=== PATIENT | female | born 1970 | race Caucasian/White ===

== ENCOUNTER 2020-08-20 12:44 | Emergency (ER) | payer OTHER ==
--- NOTE | 2020-08-20 14:07 | ER Document Report ---
ED Medical Screen (RME) - General Chief Complaint: Dizziness Stated Complaint: LIGHTHEADED,HANDS FEEL TINGLY Time Seen by Provider: 08/20/20 13:59 Notes: HPI: 50-year-old female presenting with multiple complaints. Patient states that she had a fall and hit her head several days ago. Now has dizziness when she bends forward or moves the head. Also reports some neck pain with bilateral hand numbness and tingling that is intermittent. She also reports a vague discomfort in the chest over the last 2 to 3 days without shortness of breath. Patient also has noticed an elevation of her blood pressure recently, states she had a history of high blood pressure while but is not on medication PHYSICAL EXAMINATION: Lung sounds are clear to auscultation regular rate and rhythm. Patient gait is normal. Her speech is not slurred. There is no facial droop. I have greeted and performed a rapid initial assessment of this patient. A comprehensive ED assessment and evaluation of the patient, analysis of test results and completion of medical decision making process will be conducted by an additional ED providers. Physical Exam - Vital signs Vitals: Temp Pulse Resp BP Pulse Ox 99.2 F 86 20 162/78 H 99 08/20/20 13:11 08/20/20 13:11 08/20/20 13:11 08/20/20 13:11 08/20/20 13:11 Course - Vital Signs Vital signs: Temp Pulse Resp BP Pulse Ox 99.2 F 86 20 162/78 H 99 08/20/20 13:11 08/20/20 13:11 08/20/20 13:11 08/20/20 13:11 08/20/20 13:11
[2020-08-20 15:01] LABS: ABSOLUTE BASOPHILS # (AUTO) 0.1 10^3/uL (0.0-0.2); ABSOLUTE EOSINOPHILS # (AUTO) 0.1 10^3/uL (0.0-0.6); ABSOLUTE LYMPHOCYTES (AUTO) 2.4 10^3/uL (0.5-4.7); ABSOLUTE MONOCYTES (AUTO) 0.7 10^3/uL (0.1-1.4); ABSOLUTE NEUT (AUTO) 5.6 10^3/uL (1.7-8.2); BASOPHILS % (AUTO) 0.7 % (0-2); EOSINOPHILS % (AUTO) 0.9 % (0-6); HEMOGLOBIN 13.4 g/dL (12.0-15.5); LYMPHOCYTES % (AUTO) 27.1 % (13-45); MEAN CORPUSCULAR HEMOGLOBIN 26.7 pg (27.0-33.4); MEAN CORPUSCULAR HGB CONC 33.5 g/dL (32.0-36.0); MEAN CORPUSCULAR VOLUME 80 fl (80-97); PLATELET COUNT 338 10^3/uL (150-450); RED BLOOD COUNT 5.02 10^6/uL (3.72-5.28); RED CELL DISTRIBUTION WIDTH 14.8 % (11.5-14.0); SEGMENTED NEUTROPHILS % (AUTO) 63.3 % (42-78); TOTAL CELLS COUNTED % (AUTO) 100 %; WHITE BLOOD COUNT 8.8 10^3/uL (4.0-10.5)
--- NOTE | 2020-08-20 15:04 | RADIOLOGY REPORT (SQ) ---
EXAM DESCRIPTION: CT HEAD WITHOUT IMAGES COMPLETED DATE/TIME: 08/20/2020 2:52 pm REASON FOR STUDY: dizziness COMPARISON: None. TECHNIQUE: Axial images acquired through the brain without intravenous contrast. Images reviewed wi th bone, brain and subdural windows. Additional sagittal and coronal reconstructions were generated. Images stored on PACS. All CT scanners at this facility use dose modulation, iterative reconstruction, and/or weight based d osing when appropriate to reduce radiation dose to as low as reasonably achievable (ALARA). [facility]: Dose Right [facility]: CareDose [facility]: Dose Right [facility]: Teradose 4D [facility]: [employer] RADIATION DOSE: CT Rad equipment meets quality standard of care and radiation dose reduction techniq ues were employed. CTDIvol: 53.2 mGy. DLP: 1124 mGy-cm. LIMITATIONS: None. FINDINGS: VENTRICLES: Normal size and contour. The cisterns are patent. CEREBRUM: No masses. No hemorrhage. No midline shift. No evidence for acute infarction. Normal gra y/white matter differentiation. No areas of low density in the white matter. CEREBELLUM: No masses. No hemorrhage. No alteration of density. No evidence for acute infarction. EXTRAAXIAL SPACES: No fluid collections. No masses. ORBITS AND GLOBE: No intra- or extraconal masses. Normal contour of globe without masses. CALVARIUM: No fracture. PARANASAL SINUSES: No fluid or mucosal thickening. SOFT TISSUES: No mass or hematoma. OTHER: No other significant finding. IMPRESSION: 1. No acute intracranial abnormality. EVIDENCE OF ACUTE STROKE: NO COMMENT: Quality ID # [id number]: Final reports with documentation of one or more dose reduction techniques (e.g., Automated exposure control, adjustment of the mA and/or kV according to patient size, use of iterative reconstruction technique) TECHNICAL DOCUMENTATION: JOB ID: [id number] 2010 [employer]- All Rights Reserved Reading location - IP/workstation name: [email or web address]
--- NOTE | 2020-08-20 15:04 | RADIOLOGY REPORT (SQ) ---
EXAM DESCRIPTION: CT CERVICAL SPINE WITHOUT IMAGES COMPLETED DATE/TIME: 08/20/2020 2:52 pm REASON FOR STUDY: numbness hands COMPARISON: None. TECHNIQUE: Axial images acquired through the cervical spine without intravenous contrast. Images re viewed with lung, soft tissue and bone windows. Reconstructed coronal and sagittal MPR images review ed. Images stored on PACS. All CT scanners at this facility use dose modulation, iterative reconstruction, and/or weight based d osing when appropriate to reduce radiation dose to as low as reasonably achievable (ALARA). [facility]: Dose Right [facility]: CareDose [facility]: Dose Right [facility]: Teradose 4D [facility]: [employer] RADIATION DOSE: CT Rad equipment meets quality standard of care and radiation dose reduction techniq ues were employed. CTDIvol: 20.6 mGy. DLP: 499 mGy-cm. LIMITATIONS: None. FINDINGS: ALIGNMENT: Anatomic. MINERALIZATION: Normal. VERTEBRAL BODIES: The cervical vertebral body heights are preserved. There is no fracture. DISCS: Preserved. FACETS, LATERAL MASSES, POSTERIOR ELEMENTS: Intact. HARDWARE: None in the spine. VISUALIZED RIBS: No fractures. LUNG APICES AND SOFT TISSUES: No pre or paravertebral hematoma. OTHER: No other findings. IMPRESSION: No acute fracture or malalignment of the cervical spine. TECHNICAL DOCUMENTATION: JOB ID: [id number] Quality ID # [id number]: Final reports with documentation of one or more dose reduction techniques (e.g., Au tomated exposure control, adjustment of the mA and/or kV according to patient size, use of iterative reconstruction technique) 2010 [employer]- All Rights Reserved Reading location - IP/workstation name: [email or web address]
[2020-08-20 15:17] LABS: ALBUMIN 4.3 g/dL (3.5-5.0); ALKALINE PHOSPHATASE 55 U/L (38-126); ANION GAP 7 (5-19); ASPARTATE AMINO TRANSFERASE 23 U/L (14-36); BILIRUBIN,DIRECT 0.2 mg/dL (0.0-0.4); BILIRUBIN,TOTAL 0.4 mg/dL (0.2-1.3); BLOOD UREA NITROGEN 14 mg/dL (7-20); CALCIUM 10.3 mg/dL (8.4-10.2); CARBON DIOXIDE 30 mmol/L (22-30); CHLORIDE 102 mmol/L (98-107); GLUCOSE 90 mg/dL (75-110); POTASSIUM 4.3 mmol/L (3.6-5.0); TOTAL PROTEIN 7.9 g/dL (6.3-8.2)
--- NOTE | 2020-08-20 15:33 | RADIOLOGY REPORT (SQ) ---
EXAM DESCRIPTION: CHEST 2 VIEWS IMAGES COMPLETED DATE/TIME: 08/20/2020 3:18 pm REASON FOR STUDY: dizziness COMPARISON: None. EXAM PARAMETERS: NUMBER OF VIEWS: Two views. TECHNIQUE: PA and lateral views of the chest were obtained. RADIATION DOSE: NA LIMITATIONS: None. FINDINGS: LUNGS AND PLEURA: No consolidation, pleural effusion or pneumothorax. MEDIASTINUM AND HILAR STRUCTURES: No mediastinal or hilar contour abnormality. HEART AND VASCULAR STRUCTURES: The cardiac silhouette and pulmonary vasculature are within normal baxter its. BONES: No acute findings. HARDWARE: None in the chest. OTHER: No other finding. IMPRESSION: No acute cardiopulmonary process. TECHNICAL DOCUMENTATION: JOB ID: [id number] 2010 [employer]- All Rights Reserved Reading location - IP/workstation name: [email or web address]
--- NOTE | 2020-08-20 16:41 | EKG REPORT ---
SEVERITY:- NORMAL ECG - SINUS RHYTHM : Confirmed by: Aston Moise 20-Aug-2020 16:40:47
--- NOTE | 2020-08-20 17:19 | ER Document Report ---
ED General - General Chief Complaint: Dizziness Stated Complaint: LIGHTHEADED,HANDS FEEL TINGLY Time Seen by Provider: 08/20/20 13:59 Primary Care Provider: ALEX DOYLE MD [Primary Care Provider] - Follow up as needed - HPI Notes: Chief complaint: Head injury History of present illness: 50-year-old female in good general health taking no regular medications with no known allergies presents now back 3 days after a minor head injury and she is having a number of vague symptoms. Patient says she was taking some [place] decorations out of her attic and struck her head on a beam. She says the pain temporarily knocked her to her knees but there was no discrete loss of consciousness. She was mildly nauseated at that time without vomiting. The following day she had some persistent headache. Since then she has had some intermittent nausea without vomiting. She is also noted some intermittent tingling of her fingers of both hands and says that she has had some mild difficulty with concentration and dizziness. Patient notes that she had a history of hypertension in and briefly took medication but says she has not had any problems with her blood pressure since then up to the last day or 2. Her has a blood pressure monitor at home and she has been getting some values around 150/90 at home. Patient is a non-smoker. She does not consume alcohol. He is not currently working outside the hand. She is right-handed. She denies any past history of concussion or head injury. Past Medical History - General Information source: Patient, [facility] Records - Social History Smoking Status: Never Smoker Frequency of alcohol use: None Drug Abuse: None Lives with: Spouse/Significant other Family History: Reviewed & Not Pertinent - Past Medical History Cardiac Medical History: Reports: Hx Hypertension Pulmonary Medical History: Reports: None Neurological Medical History: Reports: Hx Migraine Endocrine Medical History: Denies: Hx Diabetes Mellitus Type 1, Hx Diabetes Mellitus Type 2 Malignancy Medical History: Reports: None Past Surgical History: Reports: Hx Orthopedic Surgery - Patient had surgery of the lumbar spine for degenerative disc disease and c Review of Systems - Review of Systems Notes: Constitutional: Negative for fever. HENT: Negative for sore throat. Eyes: Negative for visual changes. Cardiovascular: Negative for chest pain. Respiratory: Negative for shortness of breath. Gastrointestinal: As per HPI. Genitourinary: Negative for dysuria. Musculoskeletal: Chronic back pain. Skin: Negative for rash. Neurological: As per HPI. 10 point ROS negative except as marked above and in HPI. Physical Exam - Vital signs Vitals: Temp Pulse Resp BP Pulse Ox 99.2 F 86 20 162/78 H 99 08/20/20 13:11 08/20/20 13:11 08/20/20 13:11 08/20/20 13:11 08/20/20 13:11 Blood pressure recheck at bedside by me 139/88. - Notes Notes: GENERAL: Mildly obese middle-aged female appearing in no acute distress. SKIN: Good turgor no rashes. HEAD: Normocephalic atraumatic. EYES: PERRLA. EOMI. Conjunctivae and sclerae clear. EARS: CANALS AND TMS CLEAR. NOSE: CLEAR. MOUTH: Moist mucosa. Good dentition. No stridor or edema. No drooling. NECK: Supple. No masses or thyromegaly. No adenopathy. Carotids 2+ without bruits. No JVD. BACK: Symmetrical without tenderness. CHEST: Respirations unlabored. Breath sounds clear and symmetrical. HEART: Regular rhythm. No murmur gallop or rub. ABDOMEN: Soft nontender without masses, organomegaly or rebound. Bowel sounds normally active. No bruits. GENITALIA: Deferred. EXTREMITIES: No edema. No calf tenderness. Cap refill less than 1.5 seconds. Dorsalis pedis and posterior tibial pulses 3+ and symmetrical. NEUROLOGICAL: GCS 15. Alert and oriented x3. Normal gait. Fluent speech. Cranial nerves II through XII intact. Sensorimotor and cerebellar normal. Normal tone. PSYCHIATRIC: Appropriate affect. Course - Re-evaluation Re-evalutation: 08/20/20 17:24 Normal neurologic exam. BP is marginally elevated. Head CT C-spine CT EKG and chest x-ray all unremarkable. Her CBC and comprehensive metabolic profile as well as her pain and were normal. I think her symptoms are likely be related to a mild concussion. I have reassured her as to current findings and suggested use of Tylenol. She will need follow-up with her PMD. I talked with her about her blood pressure and told her she would need follow-up on this with her primary care provider. Findings, clinical impression and plan of treatment have been discussed with patient/family. Understanding of current findings and recommendations has been acknowledged by them and there is agreement regarding disposition and follow-up. - Vital Signs Vital signs: Temp Pulse Resp BP Pulse Ox 99.2 F 86 20 162/78 H 99 08/20/20 13:11 08/20/20 13:11 08/20/20 13:11 08/20/20 13:11 08/20/20 13:11 - Laboratory Result Diagrams: 08/20/20 14:37 08/20/20 14:37 Laboratory results interpreted by me: 08/20/20 08/20/20 14:37 14:37 [facility] 26.7 L RDW 14.8 H Calcium 10.3 H - Diagnostic Test Radiology reviewed: Image reviewed, Reports reviewed Radiology results interpreted by me: 08/20/20 17:24 Chest X-Ray 08/20/20 13:59 IMPRESSION: No acute cardiopulmonary process. Head CT 08/20/20 14:00 IMPRESSION: 1. No acute intracranial abnormality. EVIDENCE OF ACUTE STROKE: NO Cervical Spine CT 08/20/20 14:01 IMPRESSION: No acute fracture or malalignment of the cervical spine. - EKG Interpretation by Me Additional EKG results interpreted by me: 08/20/20 17:23 Twelve-lead EKG reviewed by me contemporaneously: 1428 hrs. Indication for study: Hypertension Rhythm: Normal sinus Rate: 82 Intervals: Normal intervals QRS axis: +[address]/T wave changes: None Comparison with prior tracing: None Interpretation: Normal tracing Discharge - Discharge Clinical Impression: Elevated BP without diagnosis of hypertension Concussion Qualifiers: Encounter type: initial encounter Loss of consciousness presence/duration: without LOC Qualified Code(s): S06.0X0A - Concussion without loss of consciousness, initial encounter Condition: Stable Disposition: HOME, SELF-CARE Additional Instructions: Concussion You have suffered a concussion -- a temporary loss of certain brain functions due to a mild brain injury. The recovery is usually rapid and complete. The temporary problems occurring with a concussion can include loss of consciousness, dizziness, nausea, vomiting, and confusion. Repeat concussions can cause brain damage. In the future, avoid activities that will cause a blow to your head. Wear a helmet for sports such as snowboarding, biking, or skating. It's important that someone be with you for the first 24 hours. During this time, do not exercise or drive a vehicle. Do not take any pain medication stronger than acetaminophen unless prescribed by the physician. Any significant changes should be reported immediately to the physician. Signs of a problem may include: (1) Mental confusion (2) Incoordination or staggering (3) Repeated or forceful vomiting (4) Clear or bloody drainage from ear, mouth, or nose (5) Severe headache, not relieved by acetaminophen or prescribed pain medication (6) Failure to improve in 24 hours Blood pressure is marginally elevated today. I suggested she measured this at home and keep recording as we have discussed. Follow-up with your primary care provider within the next 2 weeks. Return here immediately for any new or worsening symptoms. As we previously discussed you may take Tylenol as needed for headache. Referrals: ALEX DOYLE MD [Primary Care Provider] - Follow up as needed
[2020-08-20 17:44] VITALS: BP 130/78
== END 2020-08-20 17:43 | disposition home or self-care (01) ==
LOC: ER 12:44
DX: S06.0X0A Concussion without loss of consciousness, initial encounter (principal); I10 Essential (primary) hypertension; R42 Dizziness and giddiness; R20.0 Anesthesia of skin; W22.8XXD Striking against or struck by other objects, subsequent encounter; M54.9 Dorsalgia, unspecified; G89.29 Other chronic pain
CPT/HCPCS: 36415; 70450; 71046; 72125; 80053; 84484; 85025; 93005; 93010; 99285